=== PATIENT | male | born 1955 ===

== ENCOUNTER → 2017-09-08 | Outpatient (REF) | LOC: ZLAB.WCH 18:07 | DX: Z12.5 Encounter for screening for malignant neoplasm of prostate (principal) | CPT/HCPCS: G0103 ==

== ENCOUNTER → 2018-09-16 | Outpatient (REF) ==
[2018-09-16 17:51] LABS: THYROID STIMULATING HORMONE 2.81 uIU/mL (0.465-4.680)
[2018-09-16 19:06] LABS: PSA-TOTAL 0.72 ng/mL (0-4)
== END ==
LOC: ZLAB.WCH 16:03
PROVIDERS: Physician Assistant
DX: Z01.89 Encounter for other specified special examinations (principal)
CPT/HCPCS: G0103